=== PATIENT | female | born 1945 | race Caucasian/White ===

== ENCOUNTER 2022-08-29 01:56 | Observation (INO) | payer MEDICARE, OTHER, SELFPAY ==
[2022-08-29] VITALS (13 sets, daily range): BP systolic 108–136; BP diastolic 68–94; PULSE 63–89; RESP 16–20; TEMP 36.7–36.9; O2SAT 86–97; BMI 31.8
--- NOTE | 2022-08-29 02:05 | CTR_ITS ---
PROCEDURE INFORMATION: Exam: CT Cervical Spine Without Contrast Exam date and time: 08/29/2022 2:38 AM Age: 76 years old Clinical indication: Injury or trauma; Fall; Blunt trauma; Patient HX: Arrival via EMS. Patient found on floor at home by family. Patient appears very confused. TECHNIQUE: Imaging protocol: Computed tomography of the cervical spine without contrast. Radiation optimization: All CT scans at this facility use at least one of these dose optimization techniques: automated exposure control; mA and/or kV adjustment per patient size (includes targeted exams where dose is matched to clinical indication); or iterative reconstruction. REPORTING DATA: Count of CT and Cardiac NM exams in prior 12 months: This patient has received 0 known CTs and 0 known cardiac nuclear medicine studies in the 12 months prior to the current study. COMPARISON: CT head wo con* [id number] 08/29/2022 2:35 AM RADIATION DOSE METRICS: Total DLP (mGy-cm): 173.77 FINDINGS: Bones/joints: Multilevel degenerative disc change. No acute bony findings. Lungs: Lung apices are normal. Soft tissues: Unremarkable. CT/CT cervical spin wo con* [id number] IMPRESSION: No acute findings.
--- NOTE | 2022-08-29 02:05 | XRR_ITS ---
PROCEDURE INFORMATION: Exam: XR Chest Exam date and time: 08/29/2022 2:21 AM Age: 76 years old Clinical indication: Injury or trauma; Fall; Other: AMS; Blunt trauma (contusions or hematomas); Patient HX: Arrival via EMS. Patient found on floor at home by family. Patient appears very confused. TECHNIQUE: Imaging protocol: Radiologic exam of the chest. Views: 1 view. COMPARISON: No relevant prior studies available. FINDINGS: Lungs: Unremarkable. No consolidation. Pleural spaces: Unremarkable. No pleural effusion. No pneumothorax. Heart/Mediastinum: Unremarkable. No cardiomegaly. Bones/joints: No acute findings. XR/XR chest 1V portable [id number] IMPRESSION: No acute findings.
--- NOTE | 2022-08-29 02:05 | ECG_ITS ---
[facility] Test Date: 2022-08-29 Pat Name: Anita Ferrer Department: Room: Gender: Female Home Health Rn: : 1945 Requested By: Brad Do Order Number: [id number] Maxx MD: Chris Chi M.D. Measurements Intervals [place] Rate: 84 P: 0 [place]: 0 QRS: 61 QRSD: 88 T: 79 QT: 328 QTc: 388 Interpretive Statements ATRIAL FIBRILLATION LOW QRS VOLTAGE IN PRECORDIAL LEADS [QRS DEFLECTION < 1.0 mV IN CHEST LEADS] No previous ECG available for comparison Electronically Signed On 08-29-2022 2:53:23 CDT by Chris Chi M.D. [id number]
--- NOTE | 2022-08-29 02:05 | CTR_ITS ---
PROCEDURE INFORMATION: Exam: CT Head Without Contrast Exam date and time: 08/29/2022 2:35 AM Age: 76 years old Clinical indication: Injury or trauma; Fall; Blunt trauma (contusions or hematomas); Altered mental status/memory loss; Confusion or disorientation; Patient HX: Arrival via EMS. Patient found on floor at home by family. Patient appears very confused. ; Additional info: AMS TECHNIQUE: Imaging protocol: Computed tomography of the head without contrast. Radiation optimization: All CT scans at this facility use at least one of these dose optimization techniques: automated exposure control; mA and/or kV adjustment per patient size (includes targeted exams where dose is matched to clinical indication); or iterative reconstruction. REPORTING DATA: Count of CT and Cardiac NM exams in prior 12 months: This patient has received 0 known CTs and 0 known cardiac nuclear medicine studies in the 12 months prior to the current study. COMPARISON: No relevant prior studies available. RADIATION DOSE METRICS: Total DLP (mGy-cm): 828.58 FINDINGS: Brain: Punctate high density findings in anterior left centrum semiovale white matter estimated at 1 mm short axis by 4 mm long axis are seen on series 10 images 45 and 46 are nonspecific; MRI follow-up may be helpful for further characterization. Cerebral ventricles: No ventriculomegaly. Paranasal sinuses: Paranasal sinus retention cyst noted. Mastoid air cells: Visualized mastoid air cells are well aerated. Bones/joints: No acute findings. Soft tissues: Unremarkable. CT/CT head wo con* [id number] IMPRESSION: Nonspecific very small high density finding in centrum semiovale white matter on the left; MRI follow-up may be helpful in further characterization. Otherwise, no acute findings.
[2022-08-29 02:17] LABS: Hematocrit 45.9 % (37.0-47.0); Hemoglobin 15.5 g/dL (11.5-15.3); Lymphocytes # 0.7 10^3/uL (0.8-4.8); Lymphocytes % 22.5 %; Mean Corpuscular HGB Conc 33.8 g/dL (30.0-36.0); Mean Corpuscular Hemoglobin 31.3 pg (28.0-34.0); Mean Corpuscular Volume 92.5 fl (81-99); Mean Platelet Volume 11.2 fL (7.4-10.4); Monocytes # 0.2 10^3/uL (0.2-0.9); Monocytes % 7.2 %; Neutrophils % 68.6 %; Nucleated Red Blood Cells % 0 %; Platelet Count 67 10^3/cmm (130-400); Red Blood Count 4.96 10^6/uL (4.1-5.3); Red Cell Distribution Width 13.2 % (12.1-15.1); White Blood Count 3.1 10^3/uL (4.0-10.0)
[2022-08-29 02:25] LABS: INR 0.98 (0.8-1.2)
--- NOTE | 2022-08-29 02:27 | W.ED.WEAKNES ---
HPI - Weakness General: Chief complaint: Weakness Stated complaint: AMS Time Seen by Provider: 08/29/22 01:57 Source: patient and EMS Mode of arrival: EMS Limitations: no limitations History of Present Illness: 68-year-old female who EMS states a neighbor and fell on the floor. Unsure how long she had on the floor possibly for 1 to 2 days patient does not really remember she did hit her head in the fall. She has some slight confusion but is able answer most of my questions she does complain of some slight head neck pain states she is feels very weak. She was able to stand and ambulate with EMS. Associated symptoms: Denies chest pain, chills, dysuria, fever(s), headache(s), nausea or vomiting Review of Systems Const: Reports: fatigue and malaise; Denies: fever(s) or chills ENMT: Denies: throat pain or dental pain Card: Denies: chest pain Resp: Denies: dyspnea GI: Denies: abdominal pain, nausea, vomiting or diarrhea : Denies: dysuria Musc: Denies: neck pain or back pain Skin/Breast: Denies: rash Neuro: Denies: headache(s) PFS ED PFSH: Medical History Depression History of cataract Social History Smoking and tobacco status: former smoker Physical Exam Const: COMMON NORMALS: patient oriented x3 GENERAL APPEARANCE: ill appearing and frail appearing HENMT: COMMON NORMALS: normocephalic and atraumatic HEAD & SCALP: normocephalic and atraumatic Eye: COMMON NORMALS: Equal, round and reactive pupils present and EOMs intact bilaterally PUPIL: Yes Equal, round and reactive pupils present Neck/C-Spine: COMMON NORMALS: full ROM and supple Chest: COMMONS NORMALS: normal inspection of the chest and normal palpation of entire chest wall Resp: COMMON NORMALS: normal respiratory effort, No retractions, No use of accessory muscles and clear to auscultation bilaterally AUSCULTATION: clear to auscultation bilaterally Cardio: COMMON NORMALS: regular rate, regular rhythm and No murmurs present (Cardio) RATE: regular rate RHYTHM: regular rhythm GI: COMMON NORMALS: Normal to inspection, nondistended, normoactive bowel sounds present, Soft to palpation, non-tender and no masses PALPATION: Yes Soft to palpation Extremity: COMMON NORMALS: normal to inspection and full ROM Neuro: COMMON NORMALS: patient oriented x3, moves all extremities and no focal motor deficits Psych: COMMON NORMALS: mental status grossly normal, Normal thought process present and cooperative THOUGHT PROCESS: Normal thought process present Skin: COMMON NORMALS: no rashes or lesions noted and no wounds GENERAL SKIN EXAM: no rashes or lesions noted Course Vital Signs: Vital signs: Vital Signs Temperature 98.1 F 08/29/22 02:01 Pulse Rate 63 08/29/22 03:54 Respiratory Rate 19 H 08/29/22 03:54 Blood Pressure 136/94 08/29/22 02:01 Pulse Oximetry 93 08/29/22 03:54 Oxygen Delivery Me thod Nasal Cannula 08/29/22 02:07 Oxygen Flow Rate 2 08/29/22 02:07 MDM - Weakness Medical Decision Making Patient presents here with weakness she had fell and been down for some time. Has a mild elevated CK patient's blood work here is otherwise normal she still having some weakness. Spoke to the hospitalist will admit at this time. Lab Data 08/29/22 02:08 08/29/22 02:08 Radiology Impressions Cervical Spine CT 08/29/22 02:05 IMPRESSION: No acute findings. Chest X-Ray 08/29/22 02:05 IMPRESSION: No acute findings. Head CT 08/29/22 02:05 IMPRESSION: Nonspecific very small high density finding in centrum semiovale white matter on the left; MRI follow-up may be helpful in further characterization. Otherwise, no acute findings. Laboratory Results WBC 3.1 10^3/uL (4.0-10.0) L 08/29/22 02:08 RBC 4.96 10^6/uL (4.1-5.3) 08/29/22 02:08 Hgb 15.5 g/dL (11.5-15.3) H 08/29/22 02:08 Hct 45.9 % (37.0-47.0) 08/29/22 02:08 MCV 92.5 fl (81-99) 08/29/22 02:08 MCH 31.3 pg (28.0-34.0) 08/29/22 02:08 MCHC 33.8 g/dL (30.0-36.0) 08/29/22 02:08 RDW 13.2 % (12.1-15.1) 08/29/22 02:08 Plt Count 67 10^3/cmm (130-400) L 08/29/22 02:08 MPV 11.2 fL (7.4-10.4) H 08/29/22 02:08 Neut % (Auto) 68.6 % 08/29/22 02:08 Lymph % (Auto) 22.5 % 08/29/22 02:08 Smith % (Auto) 7.2 % 08/29/22 02:08 Eos % (Auto) 0.0 % 08/29/22 02:08 Baso % (Auto) 1.0 % 08/29/22 02:08 Neut # (Auto) 2.10 10^3/uL (1.8-7.7) 08/29/22 02:08 Lymph # (Auto) 0.7 10^3/uL (0.8-4.8) L 08/29/22 02:08 Smith # (Auto) 0.2 10^3/uL (0.2-0.9) 08/29/22 02:08 Eos # (Auto) 0.0 10^3/uL (0.0-0.8) 08/29/22 02:08 Baso # (Auto) 0.0 10^3/uL (0.0-0.1) 08/29/22 02:08 Nucleated RBC % (auto) 0 % 08/29/22 02:08 Nucleated RBCs # 0.0 /100WBC 08/29/22 02:08 PT 13.30 SECONDS (12.1-14.9) 08/29/22 02:08 INR 0.98 (0.8-1.2) 08/29/22 02:08 Sodium 128 mmol/L (136-145) L 08/29/22 02:08 Potassium 3.8 mmol/L (3.5-5.1) 08/29/22 02:08 Chloride 90 mmol/L (98-107) L 08/29/22 02:08 Carbon Dioxide 24 mmol/L (22-29) 08/29/22 02:08 Anion Gap 17.8 (5-19) 08/29/22 02:08 BUN 35 mg/dL (8-23) H 08/29/22 02:08 Creatinine 0.8 mg/dL (0.5-0.9) 08/29/22 02:08 GFR Calculation Not Reportable 08/29/22 02:08 Glucose 85 mg/dL (65-115) 08/29/22 02:08 POC Glucose 91 mg/dL (70-110) 08/29/22 02:32 Calculated Osmolality 273 mOsm/kg (285-295) L 08/29/22 02:08 Calcium 8.8 mg/dL (8.5-10.5) 08/29/22 02:08 Magnesium 2.2 mg/dL (1.7-2.3) 08/29/22 02:08 Total Bilirubin 0.6 mg/dL (0.15-1.2) 08/29/22 02:08 AST 139 U/L (0-32) H 08/29/22 02:08 ALT 78 U/L (0-33) H 08/29/22 02:08 Alkaline Phosphatase 115 U/L (35-105) H 08/29/22 02:08 Creatine Kinase 534 U/L (26-192) H* 08/29/22 02:08 Troponin T Baseline 18 ng/L (0-10) H 08/29/22 02:08 NT-Pro-B Natriuret Pep 143 pg/mL (0-450) 08/29/22 02:08 Total Protein 6.8 g/dL (6.6-8.7) 08/29/22 02:08 Albumin 3.6 g/dL (3.5-5.2) 08/29/22 02:08 Globulin 3.2 g/dL (1.3-4.6) 08/29/22 02:08 Urine Color Yellow (Yellow) 08/29/22 03:14 Urine Appearance Cloudy (CLEAR) A 08/29/22 03:14 Urine pH 5 (5-7) 08/29/22 03:14 Ur Specific [place] 1.020 (1.005-1.030) 08/29/22 03:14 Urine Protein 1+ (Negative) H 08/29/22 03:14 Urine Glucose (UA) Norm (Normal) 08/29/22 03:14 Urine Ketones Negative (Negative) 08/29/22 03:14 Urine Blood 3+ (Negative) H 08/29/22 03:14 Urine Nitrate Negative (Negative) 08/29/22 03:14 Urine Bilirubin Neg (Negative) 08/29/22 03:14 Urine Urobilinogen Neg mg/dL (Negative) 08/29/22 03:14 Ur Leukocyte Esterase Negative (Negative) 08/29/22 03:14 Urine RBC 15-25 /hpf (0-2) H 08/29/22 03:14 Urine WBC 0-4 /hpf (0-5) H 08/29/22 03:14 Ur Squamous Epith Cells 0-4 /hpf (0-5) H 08/29/22 03:14 Amorphous Sediment Not Reportable 08/29/22 03:14 Urine Bacteria 2+ /hpf (NONE) H 08/29/22 03:14 Urine Mucus 2+ /hpf 08/29/22 03:14 Discharge Plan Discharge Patient Disposition: Admitted As Inpatient Admit Provider: Olimpia Altman Clinical Impression: Weakness Condition: Stable Coding Level of Care Code ED Net C Developer for Apurva Khanna
[2022-08-29 02:31] LABS: Troponin(5th) Baseline 18 ng/L (0-10)
[2022-08-29 02:33] LABS: Alanine Aminotransferase 78 U/L (0-33); Albumin Level 3.6 g/dL (3.5-5.2); Alkaline Phosphatase 115 U/L (35-105); Anion Gap 17.8 (5-19); Aspartate Amino Transferase 139 U/L (0-32); Blood Urea Nitrogen 35 mg/dL (8-23); Calcium 8.8 mg/dL (8.5-10.5); Carbon Dioxide 24 mmol/L (22-29); Chloride 90 mmol/L (98-107); Globulin 3.2 g/dL (1.3-4.6); Glucose 85 mg/dL (65-115); Magnesium 2.2 mg/dL (1.7-2.3); Osmolality Calculated 273 mOsm/kg (285-295); Potassium 3.8 mmol/L (3.5-5.1); Sodium 128 mmol/L (136-145); Total Bilirubin 0.6 mg/dL (0.15-1.2); Total Protein 6.8 g/dL (6.6-8.7)
[2022-08-29] MEDS: sodium chloride 0.9% 1,000 ML 999 ML IV (02:33)
[2022-08-29 02:34] LABS: Creatine Phosphokinase 534 U/L (26-192)
[2022-08-29 02:35] LABS: Glucose Point of Care 91 mg/dL (70-110)
[2022-08-29 02:36] LABS: Slide Review Slide Review Perform
[2022-08-29 03:01] LABS: NT Pro B Type Natriuretic Pept 143 pg/mL (0-450)
[2022-08-29 03:25] LABS: Add Urine Microscopic? YES; Bilirubin Urine Neg (Negative); Blood Urine 3+ (Negative); Glucose Urine UA Norm (Normal); Ketones Urine Negative (Negative); Leukocyte Esterase Urine Negative (Negative); Nitrate Urine Negative (Negative); Protein Urine 1+ (Negative); Urine Appearance Cloudy (CLEAR); Urine Color Yellow (Yellow); Urobilinogen Urine Neg (Negative); pH Urine 5 (5-7)
[2022-08-29 03:26] LABS: Add Urine Culture? Yes; Bacteria Urine 2+ /hpf; Mucus Urine 2+ /hpf; RBC Urine 15-25 /hpf (0-2); Squamous Epithelial Cell Urine 0-4 /hpf (0-5); WBC Urine 0-4 /hpf (0-5)
--- NOTE | 2022-08-29 04:34 | P.HP_ITS ---
Providers/Chief Complaint Admitting Physician: Olimpia Altman MD Primary Care Provider: Jennie Cast APN Chief Complaint: AMS History of Present Illness Anita Ferrer is a 76 year old female with history of depression, cataracts presented to the hospital after a fall. Time on floor is unknown however possibility of 1 to 2 days?. Patient denies hitting her head and does not real ly remember the circumstances around the fall. She does have some confusion but is able to answer questions for the most part. Patient also reports mild headache and states that she is generally feels very weak. Denies chest pain, fever, chills, nausea, vomiting, diarrhea, abdominal pain at this time. Patient is giving very vague answers at this time. When asked about her meals she says that she eats however cannot give any details as to what she eats. At 1 point she says she goes to the [employer] store and buy spaghetti. She says she does not cook. There is nobody there to help her get her meals together either. Then at 1 point she also says that she does not eat. She says she has been very weak and she just does not have the energy and that is why she was brought to the hospital. She is a smoker. States smokes 1 carton a day and then when we asked she said it might be a pack a day. Denies alcohol use denies liver disease history. Denies any other medical history at this time. Does not have a primary care doctor. Says she does not have any family. She does have a friend and his name is Mr. Navas. When asked if we can speak to him regarding her medical care she did not answer that question. There was a bag of medicine brought in with her which has phentermine and that and some tablets who was #labeling has been scratched off. It seems the pills have been tampered with. The medication bottles do not have any stickers on them. She is unable to identify which pharmacy she goes to. She also states she has oxygen at home but unable to give any details. Very very poor historian. On arrival blood pressure 136/94, respirate 19, pulse 63, temperature 98.1, saturating 93% on 2 L nasal cannula. Cervical spine CT no acute findings, chest x-ray no acute findings, head CT shows nonspecific very small high density finding and centrum semiovale white matter on the left. MRI follow-up may be helpful. WBC 3.1, hemoglobin 15.5, platelets 67, sodium 128, potassium 3.8, creatinine 0.8, glucose 85, AST 139, ALT 78, CK5 34, baseline troponin 18, BNP 143, UA positive for 3+ blood, 1525 RBCs, 2+ bacteria, 2+ mucus. Medications/Allergies Home Medications Medication Instructions Recorded Confirmed Last Taken Type CBD gummies PO 10/12/20 Unknown History duloxetine 60 mg capsule,delayed 60 mg PO DAILY 10/12/20 10/12/20 Unknown History release (Cymbalta) guaifenesin 600 mg tablet, 600 mg PO BID 10/12/20 10/12/20 Unknown History extended release 12 hr (Mucinex) super beets PO 10/12/20 Unknown History mupirocin 2 % topical ointment 1 applic topical BID #22 grams 10/26/20 Unknown Rx triamcinolone acetonide 0.1 % 1 applic topical BID #80 grams 10/26/20 Unknown Rx topical ointment Allergies Allergy/AdvReac Type Severity Reaction Status Date / Time No Known Allergies Allergy Verified 10/12/20 16:04 PFSH Acute PFSH: Medical History (Updated 08/29/22 @ 04:52 by Olimpia Altman MD) Depression History of cataract Social History Smoking and tobacco status: former smoker Vitals/I&O/Wt Last Vital Signs Temp 98.1 F 08/29/22 02:01 Pulse 63 08/29/22 03:54 Resp 19 H 08/29/22 03:54 BP 136/94 08/29/22 02:01 Pulse Ox 93 08/29/22 03:54 O2 Del Method Nasal Cannula 08/29/22 02:07 O2 Flow Rate 2 08/29/22 02:07 08/28/22 08/28/22 08/29/22 14:59 22:59 06:59 Intake Total 1000 / 1000 Balance 1000 / 1000 Weight last 48 hrs Weight 81.647 kg Physical Exam Narrative: General: Alert oriented x3, patient seen laying in bed appearing comfortable at this time no acute respiratory distress. Does seem somewhat confused however is able to answer some questions with vague answers. Follows commands. HEENT: Normocephalic, atraumatic, EOMI, breathing 2 L nasal cannula. Cardio: Regular rate rhythm, normal S1-S2, Respiratory: Inspiratory and expiratory wheezing bilaterally GI: Abdomen soft, nontender, nondistended, bowel sounds + Extremities: No edema noted. Urinary Catheter Management: Mckinley: Cath Placed During This Visit: yes Urinary Catheter Date of Insertion: 08/29/22 Urinary Catheter Time of Insertion: 03:30 Data 08/29/22 02:08 08/29/22 02:08 A&P Assessment and plan (1) Weakness: (2) Fall: (3) Depression: (4) Elevated liver enzymes: (5) Thrombocytopenia: Plan #Fall #Altered mental status #COPD exacerbation #Depression #Mild rhabdomyolysis #Elevated liver enzymes #Thrombocytopenia - Place in cardiac telemetry to rule out occult arrhythmia - Unaware of specifics around the fall. CT head does show a small high density area. MRI recommended. We will check MRI brain without contrast in a.m. Patient able to move all 4 extremities at this time. Neuro exam grossly normal. ? Placed on IV fluids normal saline 125 cc/h. She is status post 1 L normal sa line bolus in ER ? Med rec need to be completed with pharmacy in a.m. ? Check TSH, vitamin B12 level, ammonia level ? Check peripheral blood smear. Monitor platelet count. 67,000 at this time. Unsure of baseline. -Check abdominal ultrasound, hepatitis profile ? PT/OT -Check urine drug screen. Patient's pill bottles have no stickers and the actual tablets have been scratched to take off numbers off of them. There was also phentermine found in her bag. Unsure if patient was on it. She is unable to specify many details. Unknown what pharmacy she goes to. ? There is no family that we can contact her at this time. ? I do not believe patient has a capacity to make her medical decisions at this point. She is alert and oriented however she does not have capacity. She is unable to provide any reasoning regarding any question asked. ? UA did have 2+ bacteria. Negative for nitrates and leukocyte esterase. I will check a urine culture and start patient empirically on ceftriaxone 1 g da rodney for now -We will need to obtain more information from friend in a.m. -She does report a history of COPD. Also claims she is on oxygen at home. Does have an albuterol inhaler as well. We will check sputum Gram stain culture. DuoNeb every 6 hours scheduled. Solu-Medrol 40 every 8 hours IV. Azithromycin 500 daily. We will treat for COPD exacerbation as well. Full code SCDs Attestations Medical Necessity Statement*: Observation admission overnight for ams Coding Level of Care Code G0426 (50 min) TH Encounter Time (min): 65 Patient seen via Telehealth in the acute care setting (hospital or ED location) by agreement and consent of patient or patient sales and marketing representative. Telehealth technology used during the visit includes video and audio. This patient encounter is appropriate and reasonable under the circumstances given the patient?s particular presentation at this time. The patient has been advised of the potential risks and limitations of this mode of treatment (including but not limited to the absence of in-person examination at this time) and has agreed to be treated by an off-site physician for this visit. If deemed clinically necessary from this telehealth visit, or if condition or consent for telehealth visit changes, an in-person visit will be arranged. For this encounter, total time for the origination of telehealth care on this date is as shown. Diagnoses Weakness R53.1 Fall W19.XXXA Depression F32.9 Elevated liver enzymes R74.8 Thrombocytopenia D69.6
--- NOTE | 2022-08-29 05:10 | USCV_ITS ---
Anita Ferrer Age: 76 Gender: F : 1945 Exam Date: 08/29/2022 07:53 Ordering Phys: Olimpia Altman MD Technologist: Isaac Ocoha Exam Location: [facility] [place] Indication: BP: 136 / 94 HR: 79 Rhythm: Sinus Technical Quality: Adequate MEASUREMENTS (Male / Female) Normal Values 2D ECHO LV Diastolic Diameter PLAX 3.6 cm 4.2 - 5.9 / 3.9 - 5.3 cm LV Systolic Diameter PLAX 3.1 cm LV Chamber Size 2.6 cm IVS Diastolic Thickness 0.9 cm 0.6 - 1.0 / 0.6 - 0.9 cm IVS Systolic Thickness 1.5 cm LVPW Diastolic Thickness 1.0 cm 0.6 - 1.0 / 0.6 - 0.9 cm LVPW Systolic Thickness 1.4 cm RV Chamber Size 2.2 cm LVOT Diameter 2.1 cm LV Ejection Fraction 2D Teich 14.2 % LV Ejection Fraction MOD 2C 45.6 % LV Ejection Fraction 2C AL 45.4 % LA Diameter 2.8 cm LA Width 2.4 cm LA Height 3.2 cm RA Width 2.9 cm RA Height 3.3 cm Aorta at Sinotubular Diameter 2.8 cm IVC Diameter 1.2 cm M-MODE Aortic Annulus Diameter 3.4 cm LA Ao Ratio MM 0.9 MV E Point Septal Separation 0.8 cm DOPPLER AV Peak Velocity 136.0 cm/s LVOT Peak Velocity 101.0 cm/s AV Area Cont Eq vti 3.3 cm squared AV Area Cont Eq pk 2.6 cm squared MV Area PHT 3.4 cm squared Mitral E to A Ratio 1.3 MV E' Velocity 36.0 cm/s Mitral E to MV E' Ratio 13.7 Mitral E to LV E' Lateral Ratio 13.7 Mitral E to LV E' Septal Ratio 14.0 TR Peak Velocity 246.0 cm/s TR Peak Gradient 24.2 mmHg TR Mean Velocity 181.9 cm/s TR Mean Gradient 15.6 mmHg TR Velocity Time Integral 62.6 cm Right Atrial Pressure 3.0 mmHg Pulmonary Artery Systolic Pressu 27.2 mmHg FINDINGS Left Ventricle Technically limited quality echocardiogram because of poor ultrasonic windows. LV systolic function is normal with EF of 55 to 60%. No regional wall motion abnormalities are seen Right Ventricle Grossly normal. Right Atrium Normal in size Left Atrium Normal in size Mitral Valve Not well-visualized Aortic Valve Not well-visualized. No significant stenosis seen. Tricuspid Valve Not well-visualized Pulmonic Valve Not well-visualized Pericardium Not well-visualized Aorta Not well-visualized IVC Not well-visualized CONCLUSIONS Technically limited quality echocardiogram because of poor ultrasonic windows. LV systolic function is normal. Valvular structures are not well visualized. No comparison studies are available Chris Chi MD (Electronically Signed) Final Date: 29 August 2022 18:27 S
[2022-08-29 05:12] LABS: Thyroid Stimulating Hormone 2.56 uIU/mL (0.27-4.20)
[2022-08-29 05:29] LABS: Amphetamines Screen Urine Positive (Negative); Barbiturates Screen Urine Negative (Negative); Benzodiazepines Screen Urine Negative (Negative); Cocaine Screen Urine Negative (Negative); Opiate Screen Urine Negative (Negative); PCP Screen Urine Negative (Negative); THC Screen Urine Positive (Negative)
--- NOTE | 2022-08-29 05:55 | PC.NURSE ---
pt admitted with [facility] bag of medications, upon further examination this nurse found a Lorazepam 0.5mg Bottle with 6 round yellow enteric coated pills with the outer coating scratched off of one side. Pt also had an unmarked pill bottle with 13 Phentermine tablets. MD notified and medications placed in Pyxis.
[2022-08-29 06:04] LABS: Ammonia 21 umol/L (11-51)
--- NOTE | 2022-08-29 06:06 | ECG_ITS ---
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 Measurements Intervals [place] Rate: 76 P: 73 LA: 183 QRS: 51 QRSD: 93 T: 73 QT: 355 QTc: 401 Interpretive Statements SINUS RHYTHM WITH OCCASIONAL SUPRAVENTRICULAR PREMATURE COMPLEXES LOW QRS VOLTAGE IN PRECORDIAL LEADS [QRS DEFLECTION < 1.0 mV IN CHEST LEADS] SEPTAL MYOCARDIAL INFARCTION , PROBABLY OLD [40+ ms Q WAVE IN V1/V2] Compared to ECG 08/29/2022 02:28:19 Myocardial infarct finding now present Atrial fibrillation no longer present Electronically Signed On 08-29-2022 12:31:00 CDT by Chris Chi M.D. [id number]
[2022-08-29] MEDS: cefTRIAXone 1,000 MG in sodium chloride 0.9% (plus) 50 ML 100 MG IV (06:08)
[2022-08-29] MEDS: dexamethasone 10 mg/mL INJ 6 MG IVP (06:08)
[2022-08-29] MEDS: sodium chloride 0.9% 1,000 ML 75 ML IV ×2 (06:09→19:38)
[2022-08-29 06:10] LABS: Troponin 5 2HR 16.98 ng/L (0-10)
[2022-08-29 06:11] LABS: Chol HDL Ratio 6.04 mg/dL (0.0-4.40); Cholesterol 163 mg/dL (0-200); HDL Cholesterol 27 mg/dL (60-100); LDL Cholesterol Calculated 96 mg/dL (50-129); LDL HDL Ratio 3.56 RATIO (0.00-3.22); Triglycerides 201 mg/dL (0-150)
[2022-08-29 06:12] LABS: Estmated Average Glucose 128; Hemoglobin A1C 6.1 % (4.0-6.0)
[2022-08-29 06:16] LABS: Troponin 5 2HR Delta -1.02 ABS# (0-10)
[2022-08-29 06:26] LABS: Procalcitonin 0.65 ng/mL (0-0.5); Vitamin B12 1785 pg/mL (232-1245)
--- NOTE | 2022-08-29 08:09 | US_ITS ---
WS: [id number] ULTRASOUND ABDOMEN CLINICAL INFORMATION: liver and gall bladder COMPARISON: None. FINDINGS: Liver Size: Normal. Craniocaudal length: 12.1 cm. Echogenicity: Normal. Surface nodularity: None. Mass (size and location): None. Bile ducts Intrahepatic ducts: Normal. Common bile duct diameter: 0.3 cm. Gallbladder Normal. Gallstones: None. Gallbladder sludge: None. Gallbladder wall thickening: None. Pericholecystic fluid: None. Sonographic Ch sign: Absent. Pancreas Not well visualized Spleen Splenomegaly: None. Spleen measures 9.5 x 4.1 cm Right kidney: Normal. Hydronephrosis: None. Size: 11.5 cm x 6.0 cm x 5.0 cm Left kidney: Normal. Hydronephrosis: None. Size: 11.2 cm x 4.6 cm x 5.6 cm. Abdominal aorta and IVC Visualized portions are normal. Ascites: None. US/US abdomen complete* [id number] IMPRESSION: Normal abdominal ultrasound
[2022-08-29] MEDS: ipratropium-albuterol 3 mL Neb INHALATION ×3 (08:56→15:02)
[2022-08-29] MEDS: perflutren protein-a microsphr 0.22 mg/mL SDV 3 mL IV (09:03)
--- NOTE | 2022-08-29 09:23 | PC.PHAR ---
Pt states she does not believe she takes the Vitamin D2 50,000 unit q7d. Last filled on 06/29/22 x 84 days
[2022-08-29 09:27] LABS: Troponin 5 6HR 15.69 ng/L (0-10)
[2022-08-29 09:29] LABS: Troponin 5 6HR Delta -2.31 ng/L (0-12)
[2022-08-29] MEDS: azithromycin 500 MG in sodium chloride 0.9% 250 ML 250 MG IV (09:32)
[2022-08-29 09:46] LABS: Hepatitis A Antibody IgM Non-Reactive (Nonreactive); Hepatitis B Core IgM Non-Reactive (Nonreactive); Hepatitis B Surface Antigen Non-Reactive (Nonreactive); Hepatitis C Virus Antibody Non-Reactive (Nonreactive)
[2022-08-29 10:29] LABS: HIV 1 & 2 Antibody Non-Reactive (Non-Reactiv); HIV 1 & 2 Antigen Non-Reactive (Non-Reactiv)
--- NOTE | 2022-08-29 14:03 | PM.PN ---
Subjective Subjective: Patient was seen this morning, she is alert oriented x3, follows all commands, she is not sure exactly how she got the phentermine that in her back, her urine was positive for methamphetamines and I am assuming that why it was positive but she not exactly sure where she got it how she got it she tells me that her last primary care provider she saw was over 2 years ago she denies ever taking drugs for weight loss, she does take CBD, she tells that she lives by herself, she has a friend, she goes to [employer], she is trying to downsize her house, so she is on a cell her things, sell her home, she denies any headache, blurry vision, no nausea, vomiting, abdominal pain, no history of strokes, no focal neurologic deficits, no abdominal pain, Vitals/I&O/Wt Last Vital Signs Temp 98.4 F 08/29/22 12:00 Pulse 75 08/29/22 12:00 Resp 17 08/29/22 12:00 BP 110/70 08/29/22 12:00 Pulse Ox 95 08/29/22 12:00 O2 Del Method Nasal Cannula 08/29/22 11:35 O2 Flow Rate 2 08/29/22 11:35 08/28/22 08/29/22 08/29/22 22:59 06:59 14:59 Intake Total 1000 / 1000 240 / 240 Balance 1000 / 1000 240 / 240 Weight last 48 hrs Weight 81.647 kg Physical Exam Const: COMMON NORMALS: no acute distress and patient oriented x3 Resp: COMMON NORMALS: normal respiratory effort, No retractions, No use of accessory muscles and clear to auscultation bilaterally AUSCULTATION: clear to auscultation bilaterally Cardio: COMMON NORMALS: regular rate, regular rhythm, S1 normal heart sound present and S2 normal heart sound present RATE: regular rate RHYTHM: regular rhythm HEART SOUNDS: S1 normal heart sound present and S2 normal heart sound present GI: COMMON NORMALS: Normal to inspection, nondistended, normoactive bowel sounds present and non-tender Extremity: COMMON NORMALS: no pedal edema Neuro: COMMON NORMALS: patient oriented x3 Psych: COMMON NORMALS: mental status grossly normal Urinary Catheter Management: Mckinley: Cath Placed During This Visit: yes Reason for Continuing Indwelling Catheter: Acute Urinary Retention or Obstruction Urinary Catheter Date of Insertion: 08/29/22 Urinary Catheter Time of Insertion: 03:30 Data 08/29/22 02:08 08/29/22 02:08 A&P Assessment and plan (1) Rhabdomyolysis: (2) Altered mental status: (3) Hyponatremia: (4) Elevated liver enzymes: (5) Thrombocytopenia: Plan #Fall #Altered mental status #COPD exacerbation #Depression #Mild rhabdomyolysis #Elevated liver enzymes #Thrombocytopenia - Place in cardiac telemetry to rule out occult arrhythmia - Unaware of specifics around the fall. CT head does show a small high density area. MRI recommended. We will check MRI brain without contrast in a.m. Patient able to move all 4 extremities at this time. Neuro exam grossly normal. ? Placed on IV fluids normal saline 125 cc/h for rhabdomyolysis. She is status post 1 L normal saline bolus in ER ? Med rec need to be completed with pharmacy in a.m. ? Check TSH, vitamin B12 level, ammonia level which are all within normal limits ? Check peripheral blood smear. Monitor platelet count. 67,000 at this time. Unsure of baseline. -Check abdominal ultrasound, hepatitis profile, HIV ? PT/OT -Urine drug screen positive for amphetamines, for marijuana. Patient's pill bottles have no stickers and the actual tablets have been scratched to take off numbers off of them. There was also phentermine found in her bag. Unsure if patient was on it. She is unable to specify many details. Unknown what pharmacy she goes to. ? There is no family that we can contact her at this time. ? She follows commands answers all questions, but is a bit dazed ? UA did have 2+ bacteria. Negative for nitrates and leukocyte esterase. I will check a urine culture and start patient empirically on ceftriaxone 1 g daily for now -She does report a history of COPD. Also claims she is on oxygen at home. Does have an albuterol inhaler as well. We will check sputum Gram stain culture. DuoNeb every 6 hours scheduled. Solu-Medrol 40 every 8 hours IV. Azithromycin 500 daily. We will treat for COPD exacerbation as well. Full code SCDs Attestations Medical Necessity Statement*: Patient requires hospitalization for fall, altered mental status, COPD, depression, rhabdomyolysis, elevated liver enzymes, thrombocytopenia, Diagnoses Rhabdomyolysis M62.82 Altered mental status R41.82 Hyponatremia E87.1 Elevated liver enzymes R74.8 Thrombocytopenia D69.6
[2022-08-30] VITALS (10 sets, daily range): BP systolic 110–128; BP diastolic 60–72; PULSE 68–79; RESP 16–18; TEMP 36.4–37.3; O2SAT 91–99
[2022-08-30] MEDS: cefTRIAXone 1,000 MG in sodium chloride 0.9% (plus) 50 ML 100 MG IV (05:15)
[2022-08-30] MEDS: dexamethasone 10 mg/mL INJ 6 MG IVP (05:16)
--- NOTE | 2022-08-30 05:33 | MRR_ITS ---
PROCEDURE INFORMATION: Exam: MR Head Without Contrast Exam date and time: 08/30/2022 5:33 PM Age: 77 years old Clinical indication: Altered mental status/memory loss; Additional info: Small high density finding in centrum semiovale white matter, altered mental status TECHNIQUE: Imaging protocol: Magnetic resonance imaging of the head without contrast. COMPARISON: CT head wo con* [id number] 08/29/2022 2:35 AM FINDINGS: Brain: No territorial diffusion restriction. No hemorrhage. Stable involutional changes of the brain. No mass effect. Previously noted high density focus in the left frontal centrum semiovale on noncontrast CT is not seen on MRI. There is minimal white matter disease present in this location. Potentially, this may be a small focus of calcification/mineralization on the CT. 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 Cerebral ventricles: Stable ventricular size. No ventriculomegaly. Bones/joints: Unremarkable. Paranasal sinuses: Scattered paranasal sinus mucosal thickening, without air-fluid level present. Mastoid air cells: Normal as visualized. No mastoid effusion. Orbital cavities: Unremarkable. Soft tissues: Unremarkable. MR/MR head wo con* [id number] IMPRESSION: 1. No acute intracranial abnormality. 2. Previously noted abnormality in the left frontal centrum semiovale not visualized on MRI. Potentially this may be a focus of calcification/mineralization.
[2022-08-30 05:57] LABS: Basophils % 0.9 %; Hematocrit 39.9 % (37.0-47.0); Hemoglobin 13.4 g/dL (11.5-15.3); Lymphocytes # 1.5 10^3/uL (0.8-4.8); Lymphocytes % 32.1 %; Mean Corpuscular HGB Conc 33.6 g/dL (30.0-36.0); Mean Corpuscular Hemoglobin 30.9 pg (28.0-34.0); Mean Corpuscular Volume 91.9 fl (81-99); Mean Platelet Volume 11.7 fL (7.4-10.4); Monocytes # 0.3 10^3/uL (0.2-0.9); Monocytes % 7.2 %; Neutrophils # 2.69 10^3/uL (1.8-7.7); Neutrophils % 58.7 %; Nucleated Red Blood Cells % 0 %; Platelet Count 62 10^3/cmm (130-400); Red Blood Count 4.34 10^6/uL (4.1-5.3); Red Cell Distribution Width 13.4 % (12.1-15.1); White Blood Count 4.6 10^3/uL (4.0-10.0)
[2022-08-30 06:03] LABS: Anion Gap 11.6 (5-19); Blood Urea Nitrogen 23 mg/dL (8-23); Calcium 8.1 mg/dL (8.5-10.5); Carbon Dioxide 25 mmol/L (22-29); Chloride 98 mmol/L (98-107); Glucose 104 mg/dL (65-115); Osmolality Calculated 276 mOsm/kg (285-295); Potassium 3.6 mmol/L (3.5-5.1); Sodium 131 mmol/L (136-145)
[2022-08-30 06:31] LABS: Slide Review Slide Review Perform
[2022-08-30] MEDS: ipratropium-albuterol 3 mL Neb INHALATION (08:11)
[2022-08-30] MEDS: sodium chloride 0.9% 1,000 ML 75 ML IV (09:03)
[2022-08-30] MEDS: azithromycin 500 MG in sodium chloride 0.9% 250 ML 250 MG IV (09:03)
[2022-08-30 09:21] LABS: Alanine Aminotransferase 65 U/L (0-33); Albumin Level 2.8 g/dL (3.5-5.2); Alkaline Phosphatase 105 U/L (35-105); Anion Gap 12.6 (5-19); Aspartate Amino Transferase 104 U/L (0-32); Blood Urea Nitrogen 21 mg/dL (8-23); Calcium 8.2 mg/dL (8.5-10.5); Carbon Dioxide 23 mmol/L (22-29); Chloride 99 mmol/L (98-107); Globulin 2.7 g/dL (1.3-4.6); Glucose 198 mg/dL (65-115); Osmolality Calculated 281 mOsm/kg (285-295); Potassium 3.6 mmol/L (3.5-5.1); Sodium 131 mmol/L (136-145); Total Bilirubin 0.4 mg/dL (0.15-1.2); Total Protein 5.5 g/dL (6.6-8.7)
--- NOTE | 2022-08-30 10:52 | PC.CHAP ---
Pastoral Care Encounter/Spiritual Assessment Type of Contact [] Declined picc nurse visit [] Patient/Family/Request visit [] Outpatient visit [x] Follow-up visit [] Physician referral [] Code/Alert [] Routine visit [] Staff referral [] Actively dying [] Patient sleeping [] Family support [] [] Out of room [] Palliative care [] [] Receiving care in room [] Pre-surgical visit [] Trauma [] Long length of stay [] ICU visit [] Other: Relational/Emotional Strength [] Patient feels connected with others/family/visitors/staff [] Distress [] Loneliness/isolation [] Abandonment Spirituality of Patient [] Person of [place] [] Attends Oriental Orthodox of their [place] [] Believes in Prayer [] Reads Bible or Scientologist materials [] There are Spiritual issues to be addressed Mine Expert Interventions [] Prayer [] Active listening [] Non-anxious presence [] Spiritual/emotional support [] Crisis/trauma care [] Spiritual counseling [] Bereavement support [] Provided bereavement packet [] Provided Bible/devotional materials [] Provided toy/stuffed animal, coloring book to patient or family member [] Provided Communion [] Anointing/[place] [] Salvation [] Completed spiritual assessment [] Other: Impact on Illness or Injury [] Angry [] Fearful [] Anxious [] Often cries [] Exhaustion [] Unable to work [] Unable to attend restorationist [] Unable to walk/stand [] Unable to read [] Unable to drive [] Unable to eat/drink [] Unable to sleep [] Unable to be with family [] Patient intubated [] Other: Summary Follow-up visit Time spent with patient 5 mnis
--- NOTE | 2022-08-30 12:22 | PM.DCS ---
Discharge Providers Date of Admission: 08/29/22 03:33 Date of Discharge: August 30, 2022 Attending Provider at Admission: Olimpia Altman MD Attending Provider at Discharge: Gildardo Palma MD Primary Care Provider: Jennie Cast APN Diagnoses at Discharge Discharge Diagnosis (1) Rhabdomyolysis: Status: Acute (2) Altered mental status: Status: Acute (3) Hyponatremia: Status: Acute (4) Elevated liver enzymes: Status: Acute (5) Thrombocytopenia: Status: Acute Reason for Visit Reason for Visit: [facility] Hospital Course Hospital Course Anita Ferrer is a 76 year old female with history of depression, cataracts presented to the hospital after a fall.? Time on floor is unknown however possibility of 1 to 2 days?.? Patient denies hitting her head and does not really remember the circumstances around the fall.? She does have some confusion but is able to answer questions for the most part.? Patient also reports mild headache and states that she is generally feels very weak.? Denies chest pain, fever, chills, nausea, vomiting, diarrhea, abdominal pain at this time.? Patient is giving very vague answers at this time.? When asked about her meals she says that she eats however cannot give any details as to what she eats.? At 1 point she says she goes to the [employer] store and buy spaghetti.? She says she does not cook.? There is nobody there to help her get her meals together either.? Then at 1 point she also says that she does not eat.? She says she has been very weak and she just does not have the energy and that is why she was brought to the hospital.? She is a smoker.? States smokes 1 carton a day and then when we asked she said it might be a pack a day.? Denies alcohol use denies liver disease history.? Denies any other medical history at this time.? Does not have a primary care doctor.? Says she does not have any family.? She does have a friend and his name is Mr. Navas.? When asked if we can speak to him regarding her medical care she did not answer that question.? There was a bag of medicine brought in with her which has phentermine and that and some tablets who was #labeling has been scratched off.? It seems the pills have been tampered with.? The medication bottles do not have any stickers on them.? She is unable to identify which pharmacy she goes to.? She also states she has oxygen at home but unable to give any details.? Very very poor historian. On arrival blood pressure 136/94, respirate 19, pulse 63, temperature 98.1, saturating 93% on 2 L nasal cannula.? Cervical spine CT no acute findings, chest x-ray no acute findings, head CT shows nonspecific very small high density finding and centrum semiovale white matter on the left.? MRI follow-up may be helpful.? WBC 3.1, hemoglobin 15.5, platelets 67, sodium 128, potassium 3.8, creatinine 0.8, glucose 85, AST 139, ALT 78, CK5 34, baseline troponin 18, BNP 143, UA positive for 3+ blood, 1525 RBCs, 2+ bacteria, 2+ mucus. Patient was admitted to [facility] for altered mental status, CT of the head no acute findings, but did show a small high density area, MRI ordered, TSH within normal limits, B12 within normal limits, ammonia within normal limits, no telemetry events no focal neurologic deficits no facial no slurring of words, she was following all commands, alert oriented x3, having no significant complaints, able to carry out conversations, ambulating with physical therapy, echocardiogram LV systolic function was normal, discharge home with close follow-up primary care provider as outpatient. Patient did have rhabdomyolysis during hospitalization improved with IV fluids History of COPD had a COPD exacerbation, managed with antibiotic therapy, steroid therapy, overall clinically discharged on oxygen therapy, prednisone, antibiotic therapy with close follow-up with pulmonary as outpatient For chronic thrombocytopenia, etiology unclear, hepatitis panel negative, follow-up with hematology oncology as outpatient Of note patient's urine toxicology screen was positive for methamphetamines, she had phentermine in her purse, and she does not remember ever taking it she does not know how she got it, advised to dispose of phentermine Advised against marijuana use Physical Exam Const: COMMON NORMALS: no acute distress and patient oriented x3 Resp: COMMON NORMALS: normal respiratory effort, No retractions, No use of accessory muscles and clear to auscultation bilaterally AUSCULTATION: clear to auscultation bilaterally Cardio: COMMON NORMALS: regular rate, regular rhythm, S1 normal heart sound present and S2 normal heart sound present RATE: regular rate RHYTHM: regular rhythm HEART SOUNDS: S1 normal heart sound present and S2 normal heart sound present GI: COMMON NORMALS: Normal to inspection, nondistended, normoactive bowel sounds present and non-tender Extremity: COMMON NORMALS: no clubbing, cyanosis or edema and no pedal edema Neuro: COMMON NORMALS: patient oriented x3 Psych: COMMON NORMALS: mental status grossly normal Urinary Catheter Management: Mckinley: Cath Placed During This Visit: yes Reason for Continuing Indwelling Catheter: Acute Urinary Retention or Obstruction Urinary Catheter Date of Insertion: 08/29/22 Urinary Catheter Time of Insertion: 03:30 Discharge Data Studies Completed and Pending Completed Studies During Hospitalization Category Date Time Status CT cervical spin wo con* [id number] Stat Cat Scan 08/29/22 02:[address] head wo con* [id number] Stat Cat Scan 08/29/22 02:05 Completed XR chest 1V portable [id number] Stat Exams 08/29/22 02:05 Completed CV. echo wo/w contrast [id number] Routine Ultrasound 08/29/22 05:10 Completed US abdomen complete* [id number] Routine Ultrasound 08/29/22 08:09 Completed Pending at discharge Category Date Time Status Sputum Culture and Gram Stain Stat Lab 08/29/22 05:10 Uncollected Urine Culture Stat Lab 08/29/22 03:14 Received MR head wo con* [id number] Urgent MRI 08/30/22 05:33 Ordered Radiology Impressions Cervical Spine CT 08/29/22 02:05 IMPRESSION: No acute findings. Chest X-Ray 08/29/22 02:05 IMPRESSION: No acute findings. Head CT 08/29/22 02:05 IMPRESSION: Nonspecific very small high density finding in centrum semiovale white matter on the left; MRI follow-up may be helpful in further characterization. Otherwise, no acute findings. Abdomen Ultrasound 08/29/22 08:09 IMPRESSION: Normal abdominal ultrasound Laboratory Results WBC 4.6 10^3/uL (4.0-10.0) 08/30/22 05:20 RBC 4.34 10^6/uL (4.1-5.3) 08/30/22 05:20 Hgb 13.4 g/dL (11.5-15.3) 08/30/22 05:20 Hct 39.9 % (37.0-47.0) 08/30/22 05:20 MCV 91.9 fl (81-99) 08/30/22 05:20 MCH 30.9 pg (28.0-34.0) 08/30/22 05:20 MCHC 33.6 g/dL (30.0-36.0) 08/30/22 05:20 RDW 13.4 % (12.1-15.1) 08/30/22 05:20 Plt Count 62 10^3/cmm (130-400) L 08/30/22 05:20 MPV 11.7 fL (7.4-10.4) H 08/30/22 05:20 Neut % (Auto) 58.7 % 08/30/22 05:20 Lymph % (Auto) 32.1 % 08/30/22 05:20 [place] % (Auto) 7.2 % 08/30/22 05:20 Eos % (Auto) 0.0 % 08/30/22 05:20 Baso % (Auto) 0.9 % 08/30/22 05:20 Neut # (Auto) 2.69 10^3/uL (1.8-7.7) 08/30/22 05:20 Lymph # (Auto) 1.5 10^3/uL (0.8-4.8) 08/30/22 05:20 [place] # (Auto) 0.3 10^3/uL (0.2-0.9) 08/30/22 05:20 Eos # (Auto) 0.0 10^3/uL (0.0-0.8) 08/30/22 05:20 Baso # (Auto) 0.0 10^3/uL (0.0-0.1) 08/30/22 05:20 Nucleated RBC % (auto) 0 % 08/30/22 05:20 Nucleated RBCs # 0.0 /100WBC 08/30/22 05:20 PT 13.30 SECONDS (12.1-14.9) 08/29/22 02:08 INR 0.98 (0.8-1.2) 08/29/22 02:08 Sodium 131 mmol/L (136-145) L 08/30/22 08:55 Potassium 3.6 mmol/L (3.5-5.1) 08/30/22 08:55 Chloride 99 mmol/L (98-107) 08/30/22 08:55 Carbon Dioxide 23 mmol/L (22-29) 08/30/22 08:55 Anion Gap 12.6 (5-19) 08/30/22 08:55 BUN 21 mg/dL (8-23) 08/30/22 08:55 Creatinine 0.5 mg/dL (0.5-0.9) 08/30/22 08:55 GFR Calculation Not Reportable 08/30/22 08:55 Glucose 198 mg/dL (65-115) H 08/30/22 08:55 POC Glucose 91 mg/dL (70-110) 08/29/22 02:32 Estimat Average Glucose 128 08/29/22 05:31 Hemoglobin A1c 6.1 % (4.0-6.0) H 08/29/22 05:31 Calculated Osmolality 281 mOsm/kg (285-295) L 08/30/22 08:55 Calcium 8.2 mg/dL (8.5-10.5) L 08/30/22 08:55 Magnesium 2.0 mg/dL (1.7-2.3) 08/30/22 05:20 Total Bilirubin 0.4 mg/dL (0.15-1.2) 08/30/22 08:55 AST 104 U/L (0-32) H 08/30/22 08:55 ALT 65 U/L (0-33) H 08/30/22 08:55 Alkaline Phosphatase 105 U/L (35-105) 08/30/22 08:55 Ammonia 21 umol/L (11-51) 08/29/22 05:31 Creatine Kinase 534 U/L (26-192) H* 08/29/22 02:08 Troponin T Baseline 18 ng/L (0-10) H 08/29/22 02:08 Troponin T 120 Minute 16.98 ng/L (0-10) H 08/29/22 05:31 Delta Troponin T -1.02 ABS# (0-10) L 08/29/22 05:31 Troponin T Hi Sens 6Hr 15.69 ng/L (0-10) H 08/29/22 08:50 Troponin T Hi Sens 6Hr Delta -2.31 ng/L (0-12) L 08/29/22 08:50 NT-Pro-B Natriuret Pep 143 pg/mL (0-450) 08/29/22 02:08 Total Protein 5.5 g/dL (6.6-8.7) L 08/30/22 08:55 Albumin 2.8 g/dL (3.5-5.2) L 08/30/22 08:55 Globulin 2.7 g/dL (1.3-4.6) 08/30/22 08:55 Triglycerides 201 mg/dL (0-150) H 08/29/22 05:31 Cholesterol 163 mg/dL (0-200) 08/29/22 05:31 LDL Cholesterol, Calc 96 mg/dL (50-129) 08/29/22 05:31 HDL Cholesterol 27 mg/dL (60-100) L 08/29/22 05:31 LDL/HDL Ratio 3.56 RATIO (0.00-3.22) H 08/29/22 05:31 Cholesterol/HDL Ratio 6.04 mg/dL (0.0-4.40) H 08/29/22 05:31 Vitamin B12 1785 pg/mL (232-1245) H 08/29/22 05:31 Procalcitonin 0.65 ng/mL (0-0.5) H 08/29/22 05:31 TSH 2.56 uIU/mL (0.27-4.20) 08/29/22 02:08 Urine Color Yellow (Yellow) 08/29/22 03:14 Urine Appearance Cloudy (CLEAR) A 08/29/22 03:14 Urine pH 5 (5-7) 08/29/22 03:14 Ur Specific [place] 1.020 (1.005-1.030) 08/29/22 03:14 Urine Protein 1+ (Negative) H 08/29/22 03:14 Urine Glucose (UA) Norm (Normal) 08/29/22 03:14 Urine Ketones Negative (Negative) 08/29/22 03:14 Urine Blood 3+ (Negative) H 08/29/22 03:14 Urine Nitrate Negative (Negative) 08/29/22 03:14 Urine Bilirubin Neg (Negative) 08/29/22 03:14 Urine Urobilinogen Neg mg/dL (Negative) 08/29/22 03:14 Ur Leukocyte Esterase Negative (Negative) 08/29/22 03:14 Urine RBC 15-25 /hpf (0-2) H 08/29/22 03:14 Urine WBC 0-4 /hpf (0-5) H 08/29/22 03:14 Ur Squamous Epith Cells 0-4 /hpf (0-5) H 08/29/22 03:14 Amorphous Sediment Not Reportable 08/29/22 03:14 Urine Bacteria 2+ /hpf (NONE) H 08/29/22 03:14 Urine Mucus 2+ /hpf 08/29/22 03:14 Urine Opiates Screen Negative ng/mL (Negative) 08/29/22 03:14 Ur Barbiturates Screen Negative ng/mL (Negative) 08/29/22 03:14 Ur Phencyclidine Scrn Negative ng/mL (Negative) 08/29/22 03:14 Ur Amphetamines Screen Positive ng/mL (Negative) H 08/29/22 03:14 U Benzodiazepines Scrn Negative ng/mL (Negative) 08/29/22 03:14 Urine Cocaine Screen Negative ng/mL (Negative) 08/29/22 03:14 U Marijuana (THC) Screen Positive ng/mL (Negative) H 08/29/22 03:14 Hepatitis A IgM Ab Non-reactive (Nonreactive) 08/29/22 02:05 Hep Bs Antigen Non-reactive (Nonreactive) 08/29/22 02:05 Hep B Core IgM Ab Non-reactive (Nonreactive) 08/29/22 02:05 Hepatitis C Antibody Non-reactive (Nonreactive) 08/29/22 02:05 HIV 1&2 Ab & HIV 1 Ag Non-reactive (Non-Reactiv) 08/29/22 02:05 HIV 1&2 Antibody Non-reactive (Non-Reactiv) 08/29/22 02:05 Vitals Last Vital Signs Temp 98.2 F 08/30/22 11:55 Pulse 79 08/30/22 11:55 Resp 18 08/30/22 11:55 BP 110/70 08/30/22 11:55 Pulse Ox 91 08/30/22 11:55 O2 Del Method Room Air 08/30/22 11:55 O2 Flow Rate 2 08/30/22 08:12 Discharge Plan Discharge Patient Disposition: Home Condition: Stable Prescriptions: New albuterol sulfate 90 mcg/actuation HFA aerosol inhaler 1 inh inhalation Q6H PRN (Reason: shortness of breath or wheezing) Qty: 8.5 0RF doxycycline hyclate 100 mg capsule 100 mg PO BID 5 Days Qty: 10 0RF fluticasone propion-salmeterol [Advair Diskus] 100-50 mcg/dose blister with device 1 inh inhalation BID Qty: 60 0RF prednisone 20 mg tablet 20 mg PO BID 5 Days Qty: 10 0RF Continued super beets 1 dose PO DAILY guaifenesin [Mucinex] 600 mg tablet extended release 12hr 600 mg PO DAILY Discontinued CBD gummies 1 gummy PO DAILY Discharge Orders: Discharge Order (Routine); Ordered 08/30/22 Ordered By: Gildardo Palma Referrals: DatarBeltran MD [Physician] - 1 week Reji Olivares MD [Staff Physician] - 1 month (thrombocytoenia) Cast,ALEX Schneider [Primary Care Provider] - Discharge Diet: Cardiac Discharge Activity: Resume usual activity Patient Instructions: Opioid Safety Discharge Attestations Time Spent in Discharge Care*: greater than 30 min Quality Metrics Clinical Quality Measures [ No reported AMI, CVA or VTE this stay] Coding Level of Care Code 87250 Total time (in minutes) for Discharge: 45 Diagnoses Rhabdomyolysis M62.82 Altered mental status R41.82 Hyponatremia E87.1 Elevated liver enzymes R74.8 Thrombocytopenia D69.6
--- NOTE | 2022-08-30 17:47 | PC.OT ---
OT tx attempted at 1650. Pt off the floor to MRI. Family in room awaiting pts return and report they expect pt to be discharged home if MRI results are good. Will await results.
[2022-08-30] MEDS: hyDROXYzine 25 mg Capsule PO (19:26)
== END 2022-08-30 19:30 | disposition home or self-care (01) ==
LOC: ER 03:27 → MEDSURG 03:34
PROVIDERS: Admitting Provider Internal Medicine; Emergency Provider Emergency Medicine; Family Provider Nurse Practitioner Family; PCP Nurse Practitioner Family; Visit Provider Family Medicine
DX: M62.82 Rhabdomyolysis (principal); R41.82 Altered mental status, unspecified; E87.1 Hypo-osmolality and hyponatremia; R74.8 Abnormal levels of other serum enzymes; D69.6 Thrombocytopenia, unspecified; Z91.81 History of falling; F17.210 Nicotine dependence, cigarettes, uncomplicated; Z87.891 Personal history of nicotine dependence
CPT/HCPCS: 36415; 36416; 51702; 70450; 70551; 71045; 72125; 76700; 80048; 80053; 80061; 80074; 80306; 81001; 82140; 82550; 82607; 82962; 83036; 83735; 83880; 84145; 84443; 84484; 85025; 85610; 87086; 87806; 93005; 94640; 94760; 96365; 96367; 96375; 97110; 97116; 97161; 97167; 97535; 99285; C8929; G0378; J0456; J0696; J1100; J7030; J7050; Q9956

== ENCOUNTER 2023-11-20 19:34 | Emergency (ER) | payer MEDICARE, OTHER, SELFPAY ==
[2023-11-20 19:35] VITALS: BP 160/84; PULSE 94; RESP 18; TEMP 36.9; O2SAT 90; BMI 30.9
--- NOTE | 2023-11-20 19:37 | XRR_ITS ---
PROCEDURE INFORMATION: Exam: XR Left Humerus Exam date and time: 11/20/2023 7:47 PM Age: 78 years old Clinical indication: Injury or trauma; Fall; Fracture, traumatic injury; Closed fracture; Humerus; Left; Additional info: Fall, deformity of L humerus, very limited rom, best images obtained TECHNIQUE: Imaging protocol: Radiologic exam of the left humerus. Views: 2 or more views. COMPARISON: No relevant prior studies available. FINDINGS: Bones/joints: Humeral head and neck comminuted impacted mildly displaced fracture. Soft tissues: Normal. XR/[place] [id number] IMPRESSION: Humeral head and neck comminuted impacted mildly displaced fracture.
[2023-11-20 20:33] VITALS: BP 174/101; PULSE 84; O2SAT 95
[2023-11-20 20:40] VITALS: BP 173/95; PULSE 85; O2SAT 94
--- NOTE | 2023-11-20 21:24 | W.ED.EXTPRO ---
HPI - Extremity Problem General: Chief complaint: Extremity Injury, Upper Stated complaint: left arm pain Time Seen by Provider: 11/20/23 19:35 History of Present Illness: 78-year-old female with a history of asthma who presents to the emergency room after having a fall. She tripped and fell and injured her left shoulder. Has an apparent deformity in the proximal humerus. No other injuries. No blood thinners. No chest pain. No shortness of breath. No loss of consciousness. No altered mental status. No focal motor deficits. No abdominal pain. No nausea or vomiting. Related Data Home Medications Medication Instructions Recorded Confirmed guaifenesin 600 mg tablet, 600 mg PO DAILY 10/12/20 08/29/22 extended release 12 hr (Mucinex) super beets 1 dose PO DAILY 10/12/20 08/29/22 Previous Rx's Medication Instructions Recorded albuterol sulfate 90 mcg/actuation 1 inh inhalation Q6H PRN shortness 08/30/22 aerosol inhaler of breath or wheezing #8.5 grams fluticasone 100 mcg-salmeterol 50 1 inh inhalation BID #60 ea 08/30/22 mcg/dose blistr powdr for inhalation (Advair Diskus) hydrocodone 5 mg-acetaminophen 325 1 tab PO Q6H PRN pain #20 tabs 11/20/23 mg tablet polyethylene glycol 3350 17 17 g PO DAILY #510 grams 11/20/23 gram/dose oral powder (Miralax) Allergies Allergy/AdvReac Type Severity Reaction Status Date / Time No Known Allergies Allergy Verified 10/12/20 16:04 Review of Systems Narrative: Constitutional symptoms: Negative except as documented in HPI. Skin symptoms: Negative except as documented in HPI. Eye symptoms: Negative except as documented in HPI. ENMT symptoms: Negative except as documented in HPI. Respiratory symptoms: Negative except as documented in HPI. Cardiovascular symptoms: Negative except as documented in HPI. Gastrointestinal symptoms: Negative except as documented in HPI. Genitourinary symptoms: Negative except as documented in HPI. Musculoskeletal symptoms: Negative except as documented in HPI. Neurologic symptoms: Negative except as documented in HPI. Psychiatric symptoms: Negative except as documented in HPI. Endocrine symptoms: Negative except as documented in HPI. [facility] ED PFSH: Medical History (Updated 11/20/23 @ 21:22 by Cristal Combs MD) Depression History of cataract Social History Smoking and tobacco/nicotine status: former use of tobacco/nicotine Physical Exam Narrative: EXAM NARRATIVE: General: Alert, no acute distress. Skin: Warm, dry. Head: Normocephalic, atraumatic. Neck: Supple, trachea midline. Eye: Extraocular movements are intact. Ears, nose, mouth and throat: mucosa moist. Cardiovascular: Regular, Normal peripheral perfusion. Respiratory: Lungs are clear to auscultation, respirations are non-labored, breath sounds are equal, Symmetrical chest wall expansion. Gastrointestinal: Soft, Nontender, Non distended Musculoskeletal: Deformity at the left proximal humerus. No lacerations. Pain with any kind of movement. Neurovascularly intact. Neurological: Alert and oriented, No focal neurological deficit observed. Psychiatric: Cooperative, appropriate mood & affect. Course Vital Signs: Vital signs: Vital Signs Temperature 98.4 F 11/20/23 19:35 Pulse Rate 85 11/20/23 20:40 Respiratory Rate 18 11/20/23 19:35 Blood Pressure 173/95 11/20/23 20:40 Pulse Oximetry 94 11/20/23 20:40 Oxygen Delivery Me thod Nasal Cannula 11/20/23 20:33 Oxygen Flow Rate 1 11/20/23 20:33 MDM - Extremity (Nontraumatic) Medical Decision Making X-ray of the left shoulder/humerus shows a proximal humerus fracture. This was reviewed and interpreted by myself the emergency room physician. I also reviewed the radiology report. Consultation: I spoke with Dr. Groves on-call for orthopedics and she agrees with splint pain management and follow-up in clinic. Assessment and plan: Proximal humerus fracture -Sling, p.o. [place], IV morphine, IV Zofran. - Discharged home - Discussed plan with patient. Answered any questions. - Evaluation and treatment of this problem were appropriate in the emergency setting. Lab Data Radiology Impressions Humerus X-Ray 11/20/23 19:37 IMPRESSION: Humeral head and neck comminuted impacted mildly displaced fracture. All radiology interpretation(s) finalized by discharge Discharge Plan Discharge Patient Disposition: Home Clinical Impression: Proximal humerus fracture Condition: Stable Prescriptions: New hydrocodone-acetaminophen 5-325 mg tablet 1 tab PO Q6H PRN (Reason: pain) Qty: 20 0RF Miralax 17 gram/dose powder 17 g PO DAILY Qty: 510 0RF Rx Instructions: Take 1 scoop daily while taking pain medications. No Action super beets 1 dose PO DAILY guaifenesin [Mucinex] 600 mg tablet extended release 12hr 600 mg PO DAILY albuterol sulfate 90 mcg/actuation HFA aerosol inhaler 1 inh inhalation Q6H PRN (Reason: shortness of breath or wheezing) Qty: 8.5 0RF Advair Diskus 100-50 mcg/dose blister with device 1 inh inhalation BID Qty: 60 0RF Discharge Orders: Discharge ED (Routine); Ordered 11/20/23 Ordered By: Cristal Combs Referrals: Keke Paula MD [Physician] - 4-7 days (Please call for follow-up appointment.) Jennie Cast APN [Primary Care Provider] - Discharge Diet: Usual diet Discharge Activity: Limit activity as instructed Patient Instructions: How to Use a Sling (ED), Proximal Humerus Fracture (ED), Opioid Safety Activity Restrictions/Additional Instructions: Thank you for choosing [facility] for your healthcare needs today. Please realize this is an emergency room and that we are providing you with a medical screening exam and this may not be complete and all inclusive of all the testing and or work up that you may need to determine your ailment or severity of your illness. You have been screened and evaluated and felt safe for discharge. Health conditions do change or evolve sometimes and as such it is important that you follow up with your Primary Doctor to be re checked, 3-5 days is a general good time frame for follow up. You are always welcome to return to the ED for re assessment if your symptoms are worsening or you have new concerns Coding Level of Care Code ED Manager Enrollment for Apurva Khanna
[2023-11-20 21:34] VITALS: RESP 18; O2SAT 95
[2023-11-20] MEDS: morphine 4 mg/mL SDV 1 mL 2 MG IVP (21:34)
--- NOTE | 2023-11-20 21:35 | PC.NURSE ---
Patient was given 2 hydrocodone pills to take home. Nurse educated patient to take them as prescribed and directed; pt verbalized understanding and had no questions or concerns. Pills to be sent home witnessed by charge nurse Shabnam HOUSTON.
[2023-11-20] MEDS: ondansetron 2 mg/ML SDV 2 mL 4 MG IVP (21:38)
[2023-11-20] MEDS: HYDROcodone-acetaminophen 5-325 mg Tablet 2 TAB PO (21:43)
--- NOTE | 2023-11-20 21:49 | PC.NURSE ---
Pt sent home with two hydrocodone acetaminophen 5-[address] Combs. Marcie HOUSTON witness.
[2023-11-20 22:05] VITALS: BP 135/92; PULSE 82; RESP 16; O2SAT 93
--- NOTE | 2023-11-20 22:05 | PC.NURSE ---
Patient was placed in sling per instruction of Dr Combs.
== END 2023-11-20 22:07 | disposition home or self-care (01) ==
PROVIDERS: Emergency Provider Emergency Medicine; Family Provider Nurse Practitioner Family; PCP Nurse Practitioner Family
DX: S42.292A Other displaced fracture of upper end of left humerus, initial encounter for closed fracture (principal); Z87.891 Personal history of nicotine dependence; W01.0XXA Fall on same level from slipping, tripping and stumbling without subsequent striking against object, initial encounter
CPT/HCPCS: 73060; 96374; 96375; 99284; J2270; J2405

== ENCOUNTER → 2023-11-27 10:29 | Outpatient (BNVA) | payer MEDICARE, OTHER, SELFPAY | PROVIDERS: Family Provider Nurse Practitioner Family; PCP Nurse Practitioner Family; Visit Provider Specialist | DX: S42.292A Other displaced fracture of upper end of left humerus, initial encounter for closed fracture; X58.XXXA Exposure to other specified factors, initial encounter | CPT/HCPCS: 73030 ==

== ENCOUNTER 2023-11-27 11:47 | Outpatient (CLI) | payer MEDICARE, OTHER, SELFPAY | END 2023-11-27 11:48 | PROVIDERS: Family Provider Nurse Practitioner Family; PCP Nurse Practitioner Family; Visit Provider Specialist | DX: Z46.89 Encounter for fitting and adjustment of other specified devices (principal); S42.209D Unspecified fracture of upper end of unspecified humerus, subsequent encounter for fracture with routine healing; X58.XXXD Exposure to other specified factors, subsequent encounter | CPT/HCPCS: 24530; 97760; 99204; L3670 ==

== ENCOUNTER → 2023-12-16 11:03 | Outpatient (BNVA) | payer MEDICARE, OTHER, SELFPAY | PROVIDERS: Family Provider Nurse Practitioner Family; PCP Nurse Practitioner Family; Visit Provider Specialist | DX: S42.202D Unspecified fracture of upper end of left humerus, subsequent encounter for fracture with routine healing (principal); X58.XXXD Exposure to other specified factors, subsequent encounter | CPT/HCPCS: 73030; 99024 ==